=== PATIENT | male | born 1985 ===

== ENCOUNTER 2021-11-16 20:32 | Emergency (ER) | payer BC ==
[2021-11-16] MEDS ORDERED: ONDANSETRON 4 MG/2 ML VIAL ONE (21:29)
[2021-11-16] MEDS ORDERED: NA CHLORIDE 0.9% 1,000 ML ONE (21:29)
[2021-11-16 21:54] LABS: Urine Blood Negative (Negative); Urine Glucose Negative (Negative); Urine Protein Negative (Negative); Urine Specific Gravity 1.025 (1.005-1.030)
[2021-11-16] MEDS ORDERED: KETOROLAC 30 MG/ML INJ ONE (22:04)
[2021-11-16 22:23] LABS: Absolute Lymphocytes (CBC) 2.1 K/uL (0.7-4.9); Basophils % 0.2 % (0-1.3); Hematocrit 41.1 % (39.6-49.0); Lymphocytes % 14.4 % (15.3-44.8); MPV 9.5 fL (7.6-11.3); RBC Red Blood Cell Count 4.67 M/uL (4.33-5.43)
[2021-11-16 22:34] LABS: Bilirubin Direct 0.1 mg/dL (0-0.2); Bilirubin Total 0.5 mg/dL (0.2-1.0); Protein, Total 7.4 g/dL (6.4-8.2)
[2021-11-16 22:35] LABS: Potassium 3.8 mmol/L (3.5-5.1)
[2021-11-16 23:07] LABS: SARS-COV-2 RT PCR NEGATIVE (NEGATIVE)
[2021-11-17] MEDS ORDERED: MORPHINE 4 MG/ML SYR ONE (00:06)
[2021-11-17] MEDS ORDERED: DICYCLOMINE HCL 20 MG/2 ML AMP IM ONE (01:30)
--- NOTE | 2021-11-17 01:54 | ER ---
Nurse's Notes [facility] Name: Ibrahima Zhang Age: 36 yrs Sex: Male : 1985 Arrival Date: 11/16/2021 Time: 20:37 Bed 5 Private MD: Diagnosis: Cholelithiasis Presentation: 11/16 20:49 Chief complaint: Patient states: vomiting this AM, fever, chills; Reports pain to right lp1 side of abdomen; Denies urinary pain. Coronavirus screen: chills, fever, vomiting. Ebola Screen: No symptoms or risks identified at this time. Risk Assessment: Do you want to hurt yourself or someone else? Patient reports no desire to harm self or others. Onset of symptoms was November 16, 2021. 20:49 Method Of Arrival: Ambulatory lp1 20:49 Acuity: KELSIE 3 lp1 20:52 Initial Sepsis Screen: Does the patient meet any 2 criteria? No. Patient's initial lp1 sepsis screen is negative. Does the patient have a suspected source of infection? No. Patient's initial sepsis screen is negative. Triage Assessment: 22:17 General: Appears in no apparent distress. Behavior is calm, cooperative, appropriate venkata for age. GI: Reports Pain is 5 out of 10 on a pain scale. RMQ. Historical: - Allergies: 20:51 "cillins"; lp1 - Home Meds: 20:51 None [Active]; lp1 - PSHx: 20:51 None; meningitis; lp1 - Immunization history:: Adult Immunizations up to date, Client reports receiving the 2nd dose of the Covid vaccine. - Social history:: Smoking status: Patient denies any tobacco usage or history of. Screenin:00 Abuse screen: Denies threats or abuse. Nutritional screening: No deficits noted. as6 Tuberculosis screening: No symptoms or risk factors identified. Fall Risk None identified. Assessment: 22:00 General: Appears in no apparent distress. well groomed. Pain: Denies pain. GI: Abdomen venkata is non-distended. 11/17 01:37 GI: Reports Pain is 5 out of 10 on a pain scale. tw5 02:23 Reassessment: Patient appears in no apparent distress at this time. Patient states tw5 feeling better. Vital Signs: 11/16 20:52 BP 130 / 74; Pulse 71; Resp 18; Temp 98.1(O); Pulse Ox 100% on R/A; Weight 102.06 kg; lp1 Height 5 ft. 10 in. (177.80 cm); 22:12 BP 110 / 62; Pulse 56; Resp 22; Temp 99.8; Pulse Ox 97% ; Weight 102.06 kg; Height 5 venkata ft. 10 in. (177.80 cm); 11/17 01:37 BP 111 / 57; Pulse 67; Resp 14; Pulse Ox 95% on R/A; Pain 5/10; tw5 02:26 BP 106 / 63; Pulse 62; Resp 18; Pulse Ox 100% ; Pain 0/10; tw5 11/16 22:12 Body Mass Index 32.28 (102.06 kg, 177.80 cm) venkata ED Course: 11/16 20:37 Patient arrived in ED. bp1 20:50 Celestino Hernandez RN is Primary Nurse. as6 20:51 Triage completed. lp1 20:51 Ascencion Keith NP is PHCP. pm1 20:51 Jay Granda MD is Attending Physician. pm1 20:51 Arm band placed on right wrist. lp1 21:58 Basic Metabolic Panel Sent. venkata 21:59 COVID-19/FLU A+B (Document "Date of Onset" if Symptomatic) Sent. venkata 21:59 Basic Metabolic Panel Sent. venkata 21:59 CBC with Diff Sent. venkata 21:59 Hepatic Function Sent. venkata 21:59 Lipase Sent. venkata 22:08 Basic Metabolic Panel Sent. venkata 22:08 CBC with Diff Sent. venkata 22:08 Hepatic Function Sent. venkata 22:08 Lipase Sent. venkata 22:36 Bed in low position. Call light in reach. Side rails up X 1. Door closed. Lights venkata dimmed. Warm blanket given. Verbal reassurance given. 22:36 No provider procedures requiring assistance completed. venkata 23:00 Patient moved back from CT. venkata 23:03 CT Abd/Pelvis - IV Contrast Only In Process Unspecified. EDMS 11/17 00:15 US Abdomen Limited In Process Unspecified. EDMS 02:23 IV discontinued, intact, bleeding controlled, No redness/swelling at site. Pressure tw5 dressing applied. Administered Medications: 11/16 21:43 Drug: NS 0.9% 1000 ml Route: IV; Rate: 1000 ml; Site: right antecubital; venkata 22:19 Follow up: Response: No adverse reaction; IV Status: Completed infusion venkata 21:43 Drug: Zofran (Ondansetron) 4 mg Route: IVP; Site: right antecubital; venkata 22:18 Follow up: Response: No adverse reaction; Nausea is decreased venkata 22:00 Drug: Ketorolac 30 mg Route: IVP; Site: right antecubital; venkata 22:20 Follow up: Response: No adverse reaction; Pain is decreased; RASS: Alert and Calm (0) venkata 11/17 00:13 Not Given (Patient Refused): morphine 4 mg IVP once; RASS on ADMIN: Combtv4, Very tw5 Agttd3, Agttd2, Rstlss1, AlertClm0, Drwsy-1, Lt Sdtn-2, Mod Sdtn-3, Dp Sdtn-4, UnArsble-5 01:34 Drug: Bentyl (dicyclomine) 20 mg Route: IM; Site: right gluteus; tw5 02:22 Follow up: Response: No adverse reaction; Pain is decreased tw5 Outcome: 01:54 Discharge ordered by MD. pm1 02:23 Discharged to home ambulatory. tw5 02:23 Condition: good 02:23 Discharge instructions given to patient, Instructed on discharge instructions, follow up and referral plans. medication usage, Demonstrated understanding of Prescriptions given X 2. 02:31 Patient left the ED. tw5 Signatures: Dispatcher [employer] EDMS Macey Doyle RN RN lp1 Ascencion Keith NP BULB WEEDER pm1 Berta Hogue Tiffany tw5 Celestino Hernandez RN RN as6 Filomena Akins RN RN venkata Corrections: (The following items were deleted from the chart) 11/16 20:52 20:51 PMHx: None; lp1 lp1
--- NOTE | 2021-11-17 01:54 | EDPHYS ---
Physician Documentation [facility] Name: Ibrahima Zhang Age: 36 yrs Sex: Male : 1985 Arrival Date: 11/16/2021 Time: 20:37 Bed 5 Private MD: ED Physician Jay Granda HPI: 11/16 21:09 This 36 yrs old Male presents to ER via Ambulatory with complaints of Abdominal pain, pm1 Vomiting. 21:09 The patient presents with abdominal pain in the right upper quadrant. Onset: The pm1 symptoms/episode began/occurred this morning. The symptoms do not radiate. Associated signs and symptoms: Pertinent positives: nausea and vomiting, Pertinent negatives: chest pain, constipation, diarrhea, dysuria, fever, shortness of breath. The symptoms are described as achy. Modifying factors: The symptoms are alleviated by nothing, the symptoms are aggravated by nothing. Severity of pain: in the emergency department the pain is actually worse. The patient has not experienced similar symptoms in the past. The patient has not recently seen a physician. Historical: - Allergies: 20:51 "cillins"; lp1 - Home Meds: 20:51 None [Active]; lp1 - PSHx: 20:51 None; meningitis; lp1 - Immunization history:: Adult Immunizations up to date, Client reports receiving the 2nd dose of the Covid vaccine. - Social history:: Smoking status: Patient denies any tobacco usage or history of. ROS: 21:09 Constitutional: Negative for fever, chills, and weight loss, Cardiovascular: Negative pm1 for chest pain, palpitations, and edema, Respiratory: Negative for shortness of breath, cough, wheezing, and pleuritic chest pain. 21:09 Back: Negative for injury and pain, : Negative for injury, bleeding, discharge, and swelling, MS/Extremity: Negative for injury and deformity, Skin: Negative for injury, rash, and discoloration, Neuro: Negative for headache, weakness, numbness, tingling, and seizure. 21:09 Abdomen/GI: Positive for abdominal pain, nausea and vomiting, Negative for diarrhea, constipation. 21:09 All other systems are negative. Exam: 21:09 Constitutional: This is a well developed, well nourished patient who is awake, alert, pm1 and in no acute distress. Head/Face: Normocephalic, atraumatic. 21:09 Back: No spinal tenderness. No costovertebral tenderness. Full range of motion. Skin: Warm, dry with normal turgor. Normal color with no rashes, no lesions, and no evidence of cellulitis. MS/ Extremity: Pulses equal, no cyanosis. Neurovascular intact. Full, normal range of motion. 21:09 Eyes: Exam is negative for acute changes, Extraocular movements: no acute changes, Conjunctiva: normal, no injection. 21:09 ENT: Exam is negative for acute changes, Mouth: no acute changes, Lips: normal, moist, Oral mucosa: normal, pink and intact, moist. 21:09 Cardiovascular: Exam negative for acute changes, Rate: normal, Rhythm: regular, Pulses: no pulse deficits are appreciated, Heart sounds: normal. 21:09 Respiratory: Exam negative for acute changes, respiratory distress, shortness of breath. 21:09 Abdomen/GI: Inspection: abdomen appears normal, Palpation: soft, in all quadrants, mild abdominal tenderness, in the right upper quadrant. 21: Neuro: Exam negative for acute changes, Orientation: is normal, Mentation: is normal, Motor: is normal, moves all fours. Vital Signs: 20:52 BP 130 / 74; Pulse 71; Resp 18; Temp 98.1(O); Pulse Ox 100% on R/A; Weight 102.06 kg; lp1 Height 5 ft. 10 in. (177.80 cm); 22:12 BP 110 / 62; Pulse 56; Resp 22; Temp 99.8; Pulse Ox 97% ; Weight 102.06 kg; Height 5 venkata ft. 10 in. (177.80 cm); 11/17 01:37 BP 111 / 57; Pulse 67; Resp 14; Pulse Ox 95% on R/A; Pain 5/10; tw5 02:26 BP 106 / 63; Pulse 62; Resp 18; Pulse Ox 100% ; Pain 0/10; tw5 11/16 22:12 Body Mass Index 32.28 (102.06 kg, 177.80 cm) venkata MDM: 11/16 20:53 Patient medically screened. pm1 11/17 01:52 ED course: Patient currently pain free and would like to go home. Toradol and Bentyl pm1 were effective for his pain and will discharge the patient home with the same medications. 01:52 Data reviewed: vital signs. Data interpreted: Pulse oximetry: on room air is 95 %. pm1 Interpretation: normal. Counseling: I had a detailed discussion with the patient and/or guardian regarding: the historical points, exam findings, and any diagnostic results supporting the discharge/admit diagnosis, lab results, radiology results, the need for outpatient follow up, for definitive care, a general surgeon, to return to the emergency department if symptoms worsen or persist or if there are any questions or concerns that arise at home. 11/16 21:04 Order name: Basic Metabolic Panel pm1 11/16 21:04 Order name: CBC with Diff; Complete Time: 23:12 pm1 11/16 21:04 Order name: Hepatic Function; Complete Time: 23:12 pm1 11/16 21:04 Order name: Lipase; Complete Time: 23:12 pm1 11/16 21:04 Order name: COVID-19/FLU A+B (Document "Date of Onset" if Symptomatic); Complete Time: pm1 23:12 11/16 21:04 Order name: Basic Metabolic Panel; Complete Time: 23:12 EDMS 11/16 21:04 Order name: CT Abd/Pelvis - IV Contrast Only pm1 11/16 22:01 Order name: Urine Dipstick-Ancillary; Complete Time: 23:12 EDMS 11/16 23:50 Order name: US Abdomen Limited pm1 11/16 21:04 Order name: IV Saline Lock; Complete Time: 21:59 pm1 11/16 21:04 Order name: Labs collected and sent; Complete Time: 21:59 pm1 11/16 21:04 Order name: Urine Dipstick-Ancillary (obtain specimen); Complete Time: 21:59 pm1 Administered Medications: 11/16 21:43 Drug: NS 0.9% 1000 ml Route: IV; Rate: 1000 ml; Site: right antecubital; venkata 22:19 Follow up: Response: No adverse reaction; IV Status: Completed infusion venkata 21:43 Drug: Zofran (Ondansetron) 4 mg Route: IVP; Site: right antecubital; venkata 22:18 Follow up: Response: No adverse reaction; Nausea is decreased venkata 22:00 Drug: Ketorolac 30 mg Route: IVP; Site: right antecubital; venkata 22:20 Follow up: Response: No adverse reaction; Pain is decreased; RASS: Alert and Calm (0) venkata 11/17 00:13 Not Given (Patient Refused): morphine 4 mg IVP once; RASS on ADMIN: Combtv4, Very tw5 Agttd3, Agttd2, Rstlss1, AlertClm0, Drwsy-1, Lt Sdtn-2, Mod Sdtn-3, Dp Sdtn-4, UnArsble-5 01:34 Drug: Bentyl (dicyclomine) 20 mg Route: IM; Site: right gluteus; tw5 02:22 Follow up: Response: No adverse reaction; Pain is decreased tw5 Disposition: 03:06 Co-signature as Attending Physician, Jay Granda MD I agree with the assessment and kdr plan of care. Disposition Summary: 11/17/21 01:54 Discharge Ordered Location: Home pm1 Problem: new pm1 Symptoms: have improved pm1 Condition: Stable pm1 Diagnosis - Cholelithiasis pm1 Followup: pm1 - With: Emergency Department - When: As needed - Reason: Worsening of condition Followup: pm1 - With: Private Physician - When: 2 - 3 days - Reason: Recheck today's complaints, Continuance of care, Re-evaluation by your physician Discharge Instructions: - Discharge Summary Sheet pm1 - Cholelithiasis pm1 Forms: - Medication Reconciliation Form pm1 - Thank You Letter pm1 - Antibiotic Education pm1 - Prescription Opioid Use pm1 Prescriptions: - dicyclomine 20 mg Oral tablet - take 1 tablet by ORAL route every 6 hours As needed; 20 tablet; Refills: 0, pm1 Product Selection Permitted - ondansetron 4 mg Oral tablet,disintegrating - place 1 tablet by TRANSLINGUAL route every 8 hours As needed; 12 tablet; pm1 Refills: 0, Product Selection Permitted Signatures: Dispatcher [employer] EDMI Jay Granda MD MD kdr Pena, Laura RN RN lp1 Ascencion Keith NP COOKIE MIXER HELPER pm1 Katherin Wiggins tw5 Filomena Akins RN RN venkata Corrections: (The following items were deleted from the chart) 11/16 20:52 20:51 PMHx: None; lp1 lp1
[2021-11-17 02:38] VITALS: TEMP 99.8
[2021-11-17 02:42] VITALS: BP 106/63; O2SAT 100
--- NOTE | 2021-11-17 14:04 | RAD REPORT ---
EXAM DESCRIPTION: CT - Abdomen Pelvis W Contrast - 11/17/2021 6:45 am CLINICAL HISTORY: The patient is 36 years old and is Male; ABD PAIN TECHNIQUE: Axial computed tomography images of the abdomen and pelvis with intravenous contrast. S agittal and coronal reformatted images were created and reviewed. This CT exam was performed using one or more of the following dose reduction techniques: automated exposure control, adjustment of t he mA and/or kV according to patient size, and/or use of iterative reconstruction technique. DLP: 2266 mGy*cm COMPARISON: None. FINDINGS: LUNG BASES: Linear densities in the right lung base, likely atelectasis or scarring. No focal consolidation or pleural effusion. HEART: Visualized heart is normal. ABDOMEN: LIVER: Unremarkable. No mass. GALLBLADDER AND BILE DUCTS: Distention of the gallbladder. No pericholecystic fluid. No ductal dila tation. PANCREAS: Unremarkable. No mass. No ductal dilation. SPLEEN: Unremarkable. No splenomegaly. ADRENALS: Unremarkable. No mass. KIDNEYS AND URETERS: Unremarkable. No solid mass. No hydronephrosis. STOMACH AND BOWEL: Mild sigmoid diverticulosis. No acute diverticulitis. No obstruction. PELVIS: APPENDIX: The appendix is seen and is within normal limits. BLADDER: Unremarkable. No mass. REPRODUCTIVE: Unremarkable as visualized. ABDOMEN and PELVIS: INTRAPERITONEAL SPACE: Unremarkable. No free air. No significant fluid collection. BONES/JOINTS: No acute fracture. No dislocation. SOFT TISSUES: Unremarkable. VASCULATURE: Mild vascular calcifications. No abdominal aortic aneurysm. LYMPH NODES: Unremarkable. No enlarged lymph nodes. IMPRESSION: 1. No acute abdominal or pelvic abnormality. 2. Mild sigmoid diverticulosis. No acute diverticulitis. 3. Distention of the gallbladder. No pericholecystic fluid. No ductal dilatation. Right upper che drant ultrasound is recommended. Electronically signed by: Omid Wakefield DO 11/16/2021 11:24 PM DECONTAMINATION WORKER Due to temporary technical issues with the PACS/Fluency reporting system, reports are being signed by the in house radiologists without review as a courtesy to insure prompt reporting. The interpreting radiologist is fully responsible for the content of the report.
--- NOTE | 2021-11-17 14:32 | RAD REPORT ---
EXAM DESCRIPTION: US - Abdomen Exam Limited - 11/17/2021 1:44 am CLINICAL HISTORY: 36 years, Male, RUQ pain COMPARISON: CT scan of the abdomen and pelvis performed 11/16/2021. TECHNIQUE: Utilizing a curved array transducer, real-time ultrasound evaluation of the abdominal vis cera was performed. Color Doppler imaging was used to assess vascular flow. FINDINGS: The liver was not imaged. The gallbladder demonstrate echogenic structures with posterior shadowing corresponding to cholelithi asis. No pericholecystic fluid and or wall thickening was identified. The common bile duct measures 4.8 mm. No intra or extrahepatic biliary duct dilatation was identified. The pancreas was not imaged. The right kidney was not imaged. The aorta was not imaged. IMPRESSION: CHOLELITHIASIS. Electronically signed by: Joe Dahl MD 11/17/2021 1:33 AM DIRECTOR OF PHYSICAL EDUCATION Due to temporary technical issues with the PACS/Fluency reporting system, reports are being signed by the in house radiologists without review as a courtesy to insure prompt reporting. The interpreting radiologist is fully responsible for the content of the report.
== END 2021-11-17 02:31 | disposition home or self-care (01) ==
LOC: ER 20:32
DX: K80.20 Calculus of gallbladder without cholecystitis without obstruction (principal); Z20.822 Contact with and (suspected) exposure to COVID-19
CPT/HCPCS: 85025; 80048; 36415; 80076; 81003; 83690; 0240U; 74177; 76705; Q9967; J0500; J7030; J2405